=== PATIENT | male | born 2000 | race Caucasian/White ===

== ENCOUNTER 2020-03-21 17:10 | Emergency (ER) | payer SELFPAY ==
[~2020-03-21] VITALS: Ht 177.8 cm; Wt 88.9 kg
[2020-03-21 17:16] VITALS: BP 121/70
[2020-03-21] MEDS ORDERED: LIDOCAINE 1%-EPI 1:100K, 20ML SQ ONE (17:30)
[2020-03-21] MEDS ORDERED: LIDOCAINE-MPF 1%, 5ML ONE (19:12)
--- NOTE | 2020-03-21 19:23 | NUR ---
SUTURE SET UP AT THIS TIME FOR KERVIN SCHUMACHER
[2020-03-21] MEDS ORDERED: NEOSPORIN OINT. PKT 1 PACKET ONE (19:50)
== END 2020-03-21 20:36 | disposition home or self-care (01) ==
LOC: ED 20:01
DX: S81.812A Laceration without foreign body, left lower leg, initial encounter (principal); W18.39XA Other fall on same level, initial encounter; Y93.89 Activity, other specified; Y92.89 Other specified places as the place of occurrence of the external cause; Y99.8 Other external cause status
CPT/HCPCS: 12031; 99284